=== PATIENT | male | born 1995 | race Caucasian/White ===

== ENCOUNTER → 2016-12-04 | Outpatient (CLI) | payer OTHER ==
[~2016-12-04] VITALS: Ht 177.8 cm; Wt 66.7 kg
[2016-12-04 14:00] VITALS: BP 123/82; PULSE 69; Ht 177.8 cm; Wt 66.7 kg
== END | disposition home or self-care (01) ==
LOC: C.NEUR 13:03
PROVIDERS: ATTEND Internal Medicine Pulmonary Disease
DX: G47.11 Idiopathic hypersomnia with long sleep time (principal); F41.9 Anxiety disorder, unspecified; F42.9 Obsessive-compulsive disorder, unspecified